=== PATIENT | male | born 1975 | race Two or more races ===

== ENCOUNTER 2018-11-15 09:46 | Emergency (ER) | payer SELFPAY ==
[2018-11-15 09:53] VITALS: BP 154/98
--- NOTE | 2018-11-15 09:56 | ER Document Report ---
HPI - HPI Time Seen by Provider: 11/15/18 09:55 Pain Level: 4 Notes: 43-year-old male history of schizophrenia presents to the ED with his mother today for complaints of intermittent ear pain with slight headache that has been occurring for the last couple of weeks. Tried [id number] drops from local pharmacy without much relief. Reports he is clicking of his dry when he opens and closes his jaw. Denies any trauma to face or neck. Has not tried any [id number] ibuprofen or Tylenol. Has not tried any heat or icing. Reports pain is 3 out of 10. Denies fevers, chills, chest pain,palpitations, shortness of breath, dyspnea, nausea, vomiting, diarrhea, abdominal pain, hematuria,blurred vision, double vision, loss of vision, speech changes, LH, dizziness, syncope, headaches, wheezing, ST, URI, neck pain, weakness, numbness or tingling in bilateral upper or lower extremities equally, muscle paralysis, weakness in bilateral upper or lower extremities equally or rash. Past Medical History - General Information source: Patient - Social History Smoking Status: Unknown if Ever Smoked Family History: Reviewed & Not Pertinent Vertical Provider Document - CONSTITUTIONAL Agree With Documented VS: Yes Notes: PHYSICAL EXAMINATION: GENERAL: Well-appearing, well-nourished and in no acute distress. HEAD: Atraumatic, normocephalic. EYES: Bilateral TMs with noted effusion without erythema, dulled reflex. Right EAC with induration, scant scaling. No open wounds or drainage. No tenderness to bilateral mastoid bones. Pupils equal round and reactive to light, extraocular movements intact, sclera anicteric, conjunctiva are normal. Noted click to right TMJ with opening and closing jaw. Uvula midline, airway patent. No trismus noted ENT: Nares patent, oropharynx clear without exudates. Moist mucous membranes. NECK: Normal range of motion, supple without lymphadenopathy. LUNGS: Breath sounds clear to auscultation bilaterally and equal. No wheezes rales or rhonchi. HEART: Regular rate and rhythm without murmurs ABDOMEN: Soft, nontender, nondistended abdomen. No guarding, no rebound. No masses appreciated. Musculoskeletal: Normal range of motion, no pitting or edema. No cyanosis. NEUROLOGICAL: Cranial nerves grossly intact. Normal speech, normal gait. Normal sensory, motor exams PSYCH: Normal mood, normal affect. SKIN: Warm, Dry, normal turgor, no rashes or lesions noted. - INFECTION CONTROL TRAVEL OUTSIDE OF THE [place] IN LAST 30 DAYS: No Course - Re-evaluation Re-evalutation: 11/15/18 10:06 Afebrile vitals stable and in no distress, clinical examination does show patient is starting right-sided otitis externa. Negative for mastoiditis, noted chronic otitis effusion bilateral middle ears. Patient does have clicking with opening closing jaw on right-sided temporomandibular joint. Discussed with patient to take ibuprofen as needed for pain, soft diet, avoid chewing gum. Ad vised to place cotton balls thinners prior to showering to prevent fluid from getting into the ear no swimming or going on the water until the infection has cleared. discussed with him to use antibiotic drops as directed. If symptoms become worse to follow-up with primary care provider. I have reevaluated this patient multiple times and no significant life threatening changes, no signs of toxicity, sepsis or peritonitis are noted. The patient and I have discussed the diagnosis and risks, and we agree with discharging home and close follow-up. We also discussed returning to the Emergency Department immediately if new or worsening symptoms occur with the understanding that symptoms and presentations can change. At this time will discharge with return precautions and follow-up recommendations. Verbal discharge instructions given a the bedside and opportunity for questions given. We have discussed the symptoms which are most concerning (e.g., fever, severe headaches, confusion, neck pain, after performing a Medical Screening Examination, I estimate there is LOW risk for any life threatening rash. At this time the patient looks extremely well and there are no signs of systemic infection, however this may change at any time and the rash may change. Low suspicion for meningitis, acute coronary syndrome mastoiditis, malignant otitis media I have reevaluated this patient multiple t imes and no significant life threatening changes are noted. The patient and I have discussed the diagnosis and risks, and we agree with discharging home with close follow-up with the understanding that symptoms and presentations can change. We also discussed returning to the Emergency Department immediately if new or worsening symptoms occur. We have discussed the symptoms which are most concerning (e.g., changing or worsening pain, fever, numbness, weakness, cool or painful digits) that necessitate immediate return., Vomiting, etc.) that necessitate immediate return. Medication warnings reviewed. All questions and concerns answered by this provider. Patient is in agreement with this plan and has verbalized understanding of return precautions and the need for primary care follow-up in the next 24-72 hours. Patient verbalized understanding of plan of care and agree with plan of care. 11/15/18 10:23 - Vital Signs Vital signs: Temp Pulse Resp BP Pulse Ox 98.8 F 89 16 154/98 H 99 11/15/18 09:51 11/15/18 09:51 11/15/18 09:51 11/15/18 09:51 11/15/18 09:51 Discharge - Discharge Clinical Impression: Otitis externa Qualifiers: Otitis externa type: swimmer's ear Chronicity: acute Laterality: right Qualified Code(s): H60.331 - Swimmer's ear, right ear TMJ (dislocation of temporomandibular joint) Qualifiers: Encounter type: initial encounter Qualified Code(s): S03.00XA - Dislocation of jaw, unspecified side, initial encounter Condition: Stable Disposition: HOME, SELF-CARE Instructions: Use of Ear Drops ([facility]), Otitis Externa ([facility]), Temporomandibular Joint Injury ([facility]), Acetaminophen Prescriptions: Ibuprofen [Ibu] 800 mg PO Q6HP PRN #20 tablet PRN Reason: Ciprofloxacin HCl/Dexameth [Ciprodex Otic Suspension 7.5 ml Bottle] 4 drop OT BID 7 Days #1 bottle Forms: Return to Work Referrals: EVANS JEAN BAPTISTE MD [ACTIVE STAFF] - Follow up in 3-5 days (sooner if needed) NEO ARMENDARIZ DO [ASSOCIATE] - Follow up as needed (ENT, as needed)
== END 2018-11-15 10:13 | disposition home or self-care (01) ==
LOC: ER 09:46
DX: H60.331 Swimmer's ear, right ear (principal); S03.00XA Dislocation of jaw, unspecified side, initial encounter; X58.XXXA Exposure to other specified factors, initial encounter
CPT/HCPCS: 99282

== ENCOUNTER 2019-04-21 06:33 | Emergency (ER) | payer MEDICAID ==
--- NOTE | 2019-04-21 08:09 | RADIOLOGY REPORT (SQ) ---
EXAM DESCRIPTION: CHEST 2 VIEWS COMPLETED DATE/TIME: 04/21/2019 7:59 am REASON FOR STUDY: cough/congestion COMPARISON: None. EXAM PARAMETERS: NUMBER OF VIEWS: two views TECHNIQUE: Digital Frontal and Lateral radiographic views of the chest acquired. RADIATION DOSE: NA LIMITATIONS: none FINDINGS: LUNGS AND PLEURA: Bandlike atelectasis or scarring of the lingula. MEDIASTINUM AND HILAR STRUCTURES: No masses or contour abnormalities. HEART AND VASCULAR STRUCTURES: Heart normal size. No evidence for failure. BONES: No acute findings. HARDWARE: None in the chest. OTHER: No other significant finding. IMPRESSION: Bandlike atelectasis or scarring of the lingula. No definite acute airspace opacity. TECHNICAL DOCUMENTATION: JOB ID: [id number] [employer]- All Rights Reserved Reading location - IP/workstation name: [email or web address]
--- NOTE | 2019-04-21 08:39 | ER Document Report ---
Entered by LIAM ARMSTRONG SCRIBE 04/21/19 0742 Acting as scribe for:NEO SHEETS MD ED General - General Chief Complaint: Shortness Of Breath Stated Complaint: DIFFICULTY BREATHING Time Seen by Provider: 04/21/19 07:35 Primary Care Provider: DANY FUENTES [Primary Care Provider] - Follow up in 3-5 days Notes: Patient is a 43-year-old male presenting to the emergency department complaining of congestion with associated difficulty breathing. Patient states that 3 weeks ago he began experiencing a cough and it has been consistent. Patient states that 3 days ago he began having excessive mucus and it has "felt like I cannot breathe". Patient states that the mucus he is spitting up is very thick and is dark brown-colored. Patient states that sometime in March he took a trip to [place] for 2 weeks, he returned and 2 weeks after returning the cough began. Patient states that he is currently on medication that he was given 2 days ago from his PCP, he does not recall what medication it was. Patient denies expensing any chest pain, fever, hemoptysis, sweats, weight loss, history of TB. TRAVEL OUTSIDE OF THE [place] IN LAST 30 DAYS: No - Related Data Allergies/Adverse Reactions: Penicillins Allergy (Verified 11/15/18 09:47) Past Medical History - General Information source: Patient - Social History Smoking Status: Unknown if Ever Smoked Cigarette use (# per day): No Chew tobacco use (# tins/day): No Frequency of alcohol use: None Drug Abuse: None Family History: Reviewed & Not Pertinent Patient has suicidal ideation: No Patient has homicidal ideation: No Pulmonary Medical History: Denies: Hx Tuberculosis Review of Systems - Review of Systems Constitutional: No symptoms reported. denies: Fever, Weight loss EENT: No symptoms reported Cardiovascular: No symptoms reported. denies: Chest pain Respiratory: See HPI, Cough, Hurts to breathe, Sputum - Light brown-colored, very thick. denies: Other - Hemoptysis Gastrointestinal: No symptoms reported Genitourinary: No symptoms reported Male Genitourinary: No symptoms reported Musculoskeletal: No symptoms reported Skin: No symptoms reported Hematologic/Lymphatic: No symptoms reported Neurological/Psychological: No symptoms reported -: Yes All other systems reviewed and negative Physical Exam - Vital signs Vitals: Temp Pulse Resp BP Pulse Ox 98.2 F 96 20 143/106 H 96 04/21/19 06:41 04/21/19 06:41 04/21/19 06:41 04/21/19 06:41 04/21/19 06:41 - Notes Notes: Physical Exam: General: Alert, appears well. HEENT: Normocephalic. Atraumatic. PERRL. Extraocular movements intact. Oropharynx clear. Neck: No lymphadenopathy. supple. Non-tender. Respiratory: No respiratory distress. Clear and equal breath sounds bilaterally. Cardiovascular: Regular rate and rhythm. Abdominal: Normal Inspection. Non-tender. No distension. Normal Bowel Sounds. Back: Non-tender. No deformity or step off. Extremities: Moves all four extremities. Upper extremities: Normal inspection. Normal ROM. Lower extremities: Normal inspection. No edema. Normal ROM. Neurological: Normal cognition. AAOx4. Normal speech. Psychological: Normal affect. Normal Mood. Skin: Warm. Dry. Normal color. Course - Re-evaluation Re-evalutation: 04/21/19 08:12 Patient's work-up shows no acute findings. Symptoms improved with Toradol. He does have bandlike atelectasis or scarring of his lingula. Nonspecific findings. Will provide 5 days of anti-inflammatories and follow-up with his primary care doctor if symptoms are not improving. 04/21/19 08:14 04/21/19 08:37 - Vital Signs Vital signs: Temp Pulse Resp BP Pulse Ox 98.2 F 78 15 124/84 96 04/21/19 08:49 04/21/19 08:49 04/21/19 08:49 04/21/19 08:49 04/21/19 08:49 Discharge - Discharge Clinical Impression: Cough Condition: Good Disposition: HOME, SELF-CARE Instructions: Cough Suppressant & Expectorant Medications Prescriptions: Guaifenesin/Dextromethorphan [Dm 10 Mg-Guai 300 Mg Liquid] 473 ml PO ASDIR PRN #1 bottle PRN Reason: Naproxen 500 mg PO BID #10 tablet Forms: Return to Work Referrals: LOCALMD,NO [Primary Care Provider] - Follow up in 3-5 days I personally performed the services described in the documentation, reviewed and edited the documentation which was dictated to the scribe in my presence, and it accurately records my words and actions.
[2019-04-21 08:52] VITALS: BP 124/84
== END 2019-04-21 08:52 | disposition home or self-care (01) ==
LOC: ER 06:33
DX: R05 Cough (principal); R06.02 Shortness of breath; R68.89 Other general symptoms and signs; Z88.0 Allergy status to penicillin
CPT/HCPCS: 71046; 99283

== ENCOUNTER → 2019-06-14 | Outpatient (CLI) | payer MEDICAID ==
--- NOTE | 2019-06-14 13:32 | RADIOLOGY REPORT (SQ) ---
EXAM DESCRIPTION: U/S RETROPERITON (RENAL/AORTA) COMPLETED DATE/TIME: 06/14/2019 12:55 pm REASON FOR STUDY: ABN KIDNEY FUNCTION STUDIES (R94.4) R94.4 ABNORMAL RESULTS OF KIDNEY FUNCTION NEIL DIES COMPARISON: None. TECHNIQUE: Dynamic and static grayscale images acquired of the kidneys and bladder and recorded on P ACS. Additional selected color Doppler and spectral images recorded. LIMITATIONS: None. FINDINGS: RIGHT KIDNEY: Normal size measuring 10.3 cm. Normal echogenicity. No solid or suspicious m asses. No hydronephrosis. No calcifications. LEFT KIDNEY: Normal size measuring 11.0 cm. Normal echogenicity. No solid or suspicious masses. No h ydronephrosis. No calcifications. BLADDER: No masses. OTHER FINDINGS: No other significant finding. IMPRESSION: Unremarkable renal ultrasound. No hydronephrosis. TECHNICAL DOCUMENTATION: JOB ID: [id number] [employer]- All Rights Reserved Reading location - IP/workstation name: [email or web address]
== END ==
LOC: RAD 12:26
PROVIDERS: ATTEND Internal Medicine
DX: R94.4 Abnormal results of kidney function studies (principal)
CPT/HCPCS: 76770